=== PATIENT | male | born 1965 | race Caucasian/White ===

== ENCOUNTER 2022-06-01 19:26 | Emergency (ER) | payer SELFPAY ==
[~2022-06-01] VITALS: Ht 182.9 cm; Wt 72.7 kg
[2022-06-01 19:38] VITALS: BP 146/88
== END 2022-06-01 20:16 | disposition home or self-care (01) ==
LOC: ER 19:26
DX: Z02.89 Encounter for other administrative examinations (principal); Z72.89 Other problems related to lifestyle; Z98.890 Other specified postprocedural states; V87.7XXA Person injured in collision between other specified motor vehicles (traffic), initial encounter; Y93.89 Activity, other specified; Y92.488 Other paved roadways as the place of occurrence of the external cause; Y99.8 Other external cause status
CPT/HCPCS: 99283